=== PATIENT | male | born 1960 | race Caucasian/White ===

== ENCOUNTER 2023-09-08 13:15 | Emergency (ER) | payer MEDICAID, MEDICARE ==
[~2023-09-08] VITALS: Ht 170.2 cm; Wt 63.6 kg
[~2023-09-08 13:15] MED LIST: AMI25T PO; GABA300C PO; HYDR1TAB PO; LISI20TA28 PO
[2023-09-08] MEDS ORDERED: orphenadrine citrate 60mg/2ml inj. IM ONE (17:35)
[2023-09-08] MEDS ORDERED: acetaminophen 325mg tablet PO ONE (17:35)
[2023-09-08] MEDS ORDERED: dexamethasone 4mg tablet PO ONE (17:40)
[2023-09-08] MEDS ORDERED: CYCL-1 PO (18:56)
[2023-09-08] MEDS ORDERED: TRAM50TA2 PO (18:56)
[2023-09-08] MEDS ORDERED: traMADol 50MG tablet PO ONE (20:20)
[2023-09-08] MEDS ORDERED: cyclobenzaprine 10mg tablet PO ONE (20:20)
[2023-09-08 20:31] VITALS: BP 179/109; PULSE 70; RESP 16; TEMP 98.7; O2SAT 95
== END 2023-09-08 20:34 | disposition home or self-care (01) ==
LOC: ER 13:15
DX: M54.2 Cervicalgia (principal); M62.838 Other muscle spasm; I10 Essential (primary) hypertension; G89.29 Other chronic pain; M54.9 Dorsalgia, unspecified; Z88.0 Allergy status to penicillin; Z79.899 Other long term (current) drug therapy
CPT/HCPCS: 72125; 96372; 99285; J2360; J7030

== ENCOUNTER 2024-07-31 10:43 | Outpatient (CLI) | payer MEDICARE, MEDICAID ==
[~2024-07-31 10:43] MED LIST changes: +CYCL-1 PO
== END 2024-07-31 23:59 | disposition home or self-care (01) ==
LOC: RAD 10:43
PROVIDERS: ATTEND Nurse Practitioner
DX: M17.11 Unilateral primary osteoarthritis, right knee (principal); M11.261 Other chondrocalcinosis, right knee; M25.561 Pain in right knee
CPT/HCPCS: 73564